=== PATIENT | female | born 2000 ===

== ENCOUNTER 2024-07-20 14:55 | Inpatient (IN) | payer SELFPAY ==
[2024-07-20] VITALS (11 sets, daily range): BP systolic 116–185; BP diastolic 70–107
[~2024-07-20] VITALS: Ht 170.2 cm; Wt 70.4 kg
[2024-07-20] MEDS ORDERED: NIFEdipine 10 MG Cap ONE (15:37)
[2024-07-20] MEDS ORDERED: NIFEdipine 10 MG Cap PO PRN (15:55)
[2024-07-20] MEDS ORDERED: Calcium Gluconate 0.465 mEq/ml 10 ml Vial IV PRN (15:55)
[2024-07-20] MEDS ORDERED: Magnesium Sul 4 GM/Water100 ML 100 ML IV ONE (15:55)
[2024-07-20] MEDS ORDERED: NIFEdipine 10 MG Cap PO SCH ×2 (15:55)
[2024-07-20] MEDS ORDERED: Magnesium Sulfate 500 ML IV SCH (15:55)
[2024-07-20] MEDS ORDERED: Lactated Ringer's 1,000 ML IV SCH (15:55)
[2024-07-20 16:04] LABS: BASOPHILS ABSOLUTE AUTO 0.08 K/mm3 (0.00-0.23); BASOPHILS PERCENT AUTO 1 % (0-2); EOSINOPHILS PERCENT AUTO 2 % (0-6); Hematocrit 38.2 % (33.0-51.0); Hemoglobin 13.4 g/dL (11.5-16.0); IMMATURE GRAN ABSOLUTE AUTO 0.08 K/mm3 (0.00-0.10); IMMATURE GRAN PERCENT AUTO 1 % (0-1); LYMPHOCYTES ABSOLUTE AUTO 2.97 K/mm3 (0.84-5.20); LYMPHOCYTES PERCENT AUTO 27 % (21-46); MONOCYTES PERCENT AUTO 7 % (4-13); Mean Corpuscular HGB 29.9 pg (26.0-34.0); Mean Corpuscular HGB Conc 35.1 g/dL (31.5-36.5); Mean Corpuscular Volume 85 fL (80-100); Mean Platelet Volume 10.3 fL (9.1-12.4); NEUTROPHILS ABSOLUTE AUTO 6.72 K/mm3 (1.96-9.15); NEUTROPHILS PERCENT AUTO 62 % (41-73); Platelet Count 325 K/mm3 (150-400); RDW Coefficient Variation 11.9 % (11.7-14.2); RDW Standard Deviation 36.9 fL (35.1-46.3); Red Blood Cell Count 4.48 M/mm3 (3.80-5.20); White Blood Cell Count 10.85 K/mm3 (4.00-11.30)
[2024-07-20 16:29] LABS: Albumin/Globulin Ratio 0.7 (0.8-1.8); Bilirubin, Total 0.2 mg/dL (0.1-1.0); Bun/Creatinine Ratio 18.2 (12.0-20.0); Creatinine, Blood 0.61 mg/dL (0.40-1.00); Globulin, Blood 4.3 g/dL (2.2-4.0); Potassium, Blood 3.7 mmol/L (3.5-5.5); Total Protein, Blood 7.3 g/dL (6.4-8.2)
--- NOTE | 2024-07-20 17:14 | NUR ---
1500- PT PRESENTS WITH ELEVATED B/P 8.5 DAYS PP. DELIVERED VIA C/S AT [place], [place]. B/P 177/89, URINE NEG FOR PROTEIN, NO PERIPHERAL EDEMA, DTRS 2+, NO CLONUS. PT CURRENTLY TAKING NO ANTIHYPERTENSIVES. MILD TEMPORAL H/A, NO VISUAL DISTURBANCES. 152- CONTINUES WITH SEVERE RANGE B/PS, DR BRANDON CALLED
[2024-07-20] MEDS ORDERED: ACET500 PO (17:21)
[2024-07-20] MEDS ORDERED: IBUP600 PO (17:21)
[2024-07-20] MEDS ORDERED: PRENATAL TABLE1 EAC2 PO (17:22)
[2024-07-20] MEDS ORDERED: Acetaminophen 500 MG Tab PO PRN (17:55)
[2024-07-20] MEDS ORDERED: Ibuprofen 600 MG Tab PO ONE (18:00)
[2024-07-20] MEDS ORDERED: Ibuprofen 400 MG Tab PO PRN (18:00)
[2024-07-20] MEDS ORDERED: NIFEdipine 30 MG TabCR PO SCH (21:00)
[2024-07-21] VITALS (13 sets, daily range): BP systolic 99–144; BP diastolic 56–94
[2024-07-21] MEDS ORDERED: NIFE30ER PO (14:33)
--- NOTE | 2024-07-21 17:45 | NUR ---
NOTE DR. MURDOCK IN TO SEE PT, EDUCATION PROVIDED. RN UPDATED PROVIDER ON MOST RECENT BP'S. PROVIDER IN ROOM TO ASSESS AND DISCUSS WITH PT AND S.O. PROVIDER OKAY'D FOR PT TO DISCHARGE AT THIS TIME. DISCHARGE INSTRUCTIONS COMPLETED WITH PT AND S.O, PACKET PRINTED AND GIVEN TO PT. PRESCRIPTION ELECTRONICALLY SENT BY PROVIDER. PT QUESTIONS AND CONCERNS ADDRESSED AT THIS TIME, DENIES OTHER CONCERNS OR QUESTIONS, NEEDS. PT LEFT AMBULATORY WITH S.O.
== END 2024-07-21 18:00 | disposition home or self-care (01) | DRG 776 ==
LOC: BC 14:55 → OBS 14:55 → BC 15:44
PROVIDERS: ADMIT Obstetrics & Gynecology
DX: O14.15 Severe pre-eclampsia, complicating the puerperium (principal); Z98.890 Other specified postprocedural states; Z79.899 Other long term (current) drug therapy
CPT/HCPCS: 36415; 80053; 81003; 85025; 99214; A9270; J3475; J7120